=== PATIENT | male | born 1960 | race Caucasian/White ===

== ENCOUNTER → 2017-05-07 | Outpatient (CLI) | payer OTHER | LOC: M LRY 11:50 | DX: S86.912A Strain of unspecified muscle(s) and tendon(s) at lower leg level, left leg, initial encounter (principal) | CPT/HCPCS: 73564 ==

== ENCOUNTER 2020-01-25 21:13 | Emergency (ER) | payer OTHER ==
[~2020-01-25] VITALS: Ht 190.5 cm; Wt 114.1 kg
[2020-01-25] MEDS ORDERED: ECOT81TA5 PO (21:18)
[2020-01-25] MEDS ORDERED: ATOR1TAB19 (21:18)
[2020-01-25] MEDS ORDERED: LISI20TA35 (21:18)
[2020-01-25] MEDS ORDERED: BOOSTRIX/ADACEL VACCINE (DIPHTH/PERTUSS/ACELL/TETANUS) 0.5ML SYR IM ONE (22:45)
[2020-01-25] MEDS ORDERED: IBUPROFEN 600MG TAB PO ONE (22:45)
[2020-01-25 23:01] VITALS: BP 143/81
--- NOTE | 2020-01-26 15:45 | REP ---
INDICATION: THUMB INJURY. Repeat dictation. Preliminary report is provided at the time of the exam by dave GERARDO. COMPARISON: None. TECHNIQUE: Four views of the left thumb are presented. FINDINGS: Four views of the left thumb demonstrate minimal spurring at the IP joint.. No fracture or subluxation is seen. No opaque foreign body noted. IMPRESSION: Minimal IP joint spurring. No fracture or subluxation seen.. <Electronically signed by Dru Quispe > 01/26/20 [id number]
== END 2020-01-25 23:03 | disposition home or self-care (01) ==
LOC: M ED 21:13
DX: S60.112A Contusion of left thumb with damage to nail, initial encounter (principal); W19.XXXA Unspecified fall, initial encounter; Y92.89 Other specified places as the place of occurrence of the external cause; Y93.02 Activity, running; Y99.0 Civilian activity done for income or pay; M25.742 Osteophyte, left hand; Z79.82 Long term (current) use of aspirin; Z79.899 Other long term (current) drug therapy

== ENCOUNTER → 2021-02-12 | Outpatient (CLI) | payer OTHER ==
[~2021-02-12] MED LIST: ATOR1TAB19; ECOT81TA5 PO; LISI20TA35
[2021-02-12 18:18] LABS: BASO % 0.6 % (0.0-1.0); EOS # 0.3 10^3/uL (0.0-0.5); EOS % 3.8 % (0.0-3.0); HEMATOCRIT 42.2 % (42.0-52.0); HEMOGLOBIN 13.7 g/dl (13.5-17.5); LYMPH % 28.2 % (24.0-44.0); MEAN CORPUSCULAR HEMOGLOBIN 28.5 pg (27.0-33.0); MEAN CORPUSCULAR HGB CONC 32.5 g/dl (32.0-36.5); MEAN CORPUSCULAR VOLUME 87.7 fl (80.0-96.0); MONO # 0.6 10^3/uL (0.0-0.8); MONO % 7.8 % (2.0-8.0); NEUTROPHILS # 4.2 10^3/uL (1.5-8.5); NEUTROPHILS % 59.3 % (36.0-66.0); PLATELET COUNT, AUTOMATED 171 10^3/uL (150-450); RED BLOOD COUNT 4.81 10^6/uL (4.30-6.10); WHITE BLOOD COUNT 7.1 10^3/uL (4.0-10.0)
[2021-02-12 18:48] LABS: ALBUMIN 3.8 GM/DL (3.2-5.2); ALT/SGPT 50 U/L (12-78); BILIRUBIN,DIRECT 0.1 MG/DL (0.0-0.2); BILIRUBIN,TOTAL 0.3 MG/DL (0.2-1.0); BLOOD UREA NITROGEN 24 MG/DL (7-18); CALCIUM LEVEL 8.9 MG/DL (8.8-10.2); CARBON DIOXIDE LEVEL 30 MEQ/L (21-32); CHLORIDE LEVEL 110 MEQ/L (98-107); CREATININE FOR GFR 0.99 MG/DL (0.70-1.30); GLOMERULAR FILTRATION RATE > 60.0 (>49); GLUCOSE, FASTING 92 MG/DL (70-100); PHOSPHORUS LEVEL 3.7 MG/DL (2.5-4.9); POTASSIUM SERUM 3.6 MEQ/L (3.5-5.1); SODIUM LEVEL 145 MEQ/L (136-145)
== END ==
LOC: M LAB 17:28
PROVIDERS: ATTEND Podiatrist Foot & Ankle Surgery
DX: B35.1 Tinea unguium (principal)

== ENCOUNTER → 2023-04-09 | Outpatient (REF) | payer OTHER | LOC: M SFHCDERM 12:51 | PROVIDERS: ATTEND Physician Assistant | DX: L91.8 Other hypertrophic disorders of the skin (principal) ==

== ENCOUNTER → 2023-05-05 | Outpatient (REF) | payer OTHER | LOC: M SFHCDERM 14:33 | PROVIDERS: ATTEND Physician Assistant | DX: L91.8 Other hypertrophic disorders of the skin (principal) ==